=== PATIENT | male | born 1990 | race African-American/Black ===

== ENCOUNTER 2021-10-12 04:04 | Emergency (ER) | payer MEDICAID ==
[~2021-10-12] VITALS: Ht 180.3 cm; Wt 72.1 kg
[2021-10-12 04:04] VITALS: BP_SYST 130
[2021-10-12] MEDS ORDERED: HALOPERIDOL LACTATE 5 MG/ML VIAL ONE (04:25)
[2021-10-12] MEDS ORDERED: HALOPERIDOL LACTATE 5 MG/ML VIAL IM ONE (04:30)
[2021-10-12] MEDS ORDERED: NACL 0.9% 1,000 ML IV ONE (04:45)
[2021-10-12 05:20] LABS: BASOPHILS # (AUTO) 0.2 K/uL (0.0-0.2); BASOPHILS % (AUTO) 3.5 % (0.0-2.0); EOSINOPHILS % (AUTO) 0.3 % (0.0-4.0); HEMATOCRIT 43.6 % (36-54); HEMOGLOBIN 14.7 g/dL (14.0-18.0); LYMPHOCYTES # (AUTO) 1.6 K/uL (1.0-5.5); LYMPHOCYTES % (AUTO) 31.8 % (20.5-51.5); MEAN CORPUSCULAR HEMOGLOBIN 31 pg (27-31); MEAN CORPUSCULAR HGB CONC 34 % (32-36); MEAN CORPUSCULAR VOLUME 92 fL (79.0-98.0); MONOCYTES # (AUTO) 0.3 K/uL (0.0-1.0); MONOCYTES % (AUTO) 5.5 % (1.7-9.3); NEUTROPHILS % (AUTO) 58.9 % (40.0-70.0); PLATELET COUNT (AUTO) 216 K/uL (130-430); RED BLOOD CELL COUNT(AUTO) 4.77 MIL/uL (4.2-6.2); RED CELL DISTRIBUTION WIDTH 16.1 % (9.0-15.0)
[2021-10-12 05:41] LABS: CALCIUM 8.4 mg/dL (8.4-11.0); CREATININE 0.85 mg/dL (0.55-1.30); POTASSIUM 3.4 mmol/L (3.5-5.1)
[2021-10-12 05:47] LABS: TOTAL BILIRUBIN 1.4 mg/dL (0.0-1.0)
--- NOTE | 2021-10-12 07:42 | NUR ---
RECIEVED RPRT FROM [facility], PT RESTING COMFORTABLY WITH EYES CLOSED. BED IS LOWERED AND LOCKED SIDE RAILS UP. NO ACUTE CHANGES IN PT CONDITION.
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
--- NOTE | 2021-10-12 08:35 | NUR ---
[facility] FAMILY [facility] MOI FOR STATUS UPDATE
--- NOTE | 2021-10-12 10:30 | NUR ---
Patient resting quietly. No acute distress noted. Vital signs within normal range.
--- NOTE | 2021-10-12 11:00 | NUR ---
PT IS AAOX4, NO DISTRESS, DENIES PAIN
[2021-10-12 12:04] VITALS: BP_SYST 127
== END 2021-10-12 12:04 | disposition home or self-care (01) ==
LOC: SED 04:04
DX: F10.129 Alcohol abuse with intoxication, unspecified (principal); R74.01 Elevation of levels of liver transaminase levels; Y90.8 Blood alcohol level of 240 mg/100 ml or more
CPT/HCPCS: 36415; 80053; 85025; 96360; 96372; 99283; G0482; J1630; J7030